=== PATIENT | male | born 1950 | race Caucasian/White ===

== ENCOUNTER 2018-08-17 06:26 | Observation (INO) ==
--- NOTE | 2018-08-10 17:13 | EKG Report ---
Test Performed on : 08/10/2018 5:02:58 PM Test Reason : PAT Blood Pressure : / mmHG Vent. Rate : 075 BPM Atrial Rate : 075 BPM P-R Int : 204 ms QRS Dur : 080 ms QT Int : 348 ms P-R-T Axes : 038 012 062 degrees QTc Int : 388 ms Normal sinus rhythm. Normal ECG No previous ECGs available Confirmed by Balbir SHERMAN, Bhargav ([id number]) on 08/11/2018 8:46:38 AM
[2018-08-10 17:24] LABS: URINE SOURCE CLEAN CATCH
[2018-08-10 17:34] LABS: BASO# 0.03 X1000 (0.0-0.2); BASO% 0.3 % (0.0-0.8); EOS# 0.19 X1000 (0.0-0.7); EOS% 1.7 % (0.0-10.0); HEMATOCRIT 39.5 % (42.0-52.0); HEMOGLOBIN 13.5 g/dL (14.0-18.0); IMM GRAN# 0.03 X1000 (0.0-0.04); IMM GRAN% 0.3 % (0.0-0.5); LYMPH# 3.19 X1000 (1.2-3.4); LYMPH% 28.4 % (20.5-51.1); MCH 29.7 PG (27-31); MCHC 34.2 g/dL (33-37); MCV 86.8 FL (81-99); MONO# 1.38 X1000 (0.11-0.59); MONO% 12.3 % (1.7-9.3); MPV 10.4 FL (7.4-10.4); NEUT# 6.42 X1000 (1.4-6.5); PLT 319 X1000 (130-400); RBC 4.55 XMIL (4.7-6.1); WBC 11.24 X1000 (4.8-10.8)
[2018-08-10 17:35] LABS: BILIRUBIN URINE NEGATIVE (NEGATIVE); BLOOD URINE NEGATIVE (NEGATIVE); COLOR YELLOW; GLUCOSE URINE NEGATIVE (NEGATIVE); KETONE URINE NEGATIVE (NEGATIVE); LEUKOCYTES URINE NEGATIVE (NEGATIVE); NITRITE URINE NEGATIVE (NEGATIVE); PROTEIN URINE NEGATIVE (NEGATIVE); TURBIDITY URINE CLEAR (CLEAR); UR EPITHELIAL CELLS <10 /HPF (<10); URINE BACTERIA NEGATIVE /HPF; URINE RBC <10 /HPF (<10); URINE WBC <10 /HPF (<10); UROBILINOGEN URINE NORMAL (NORMAL)
[2018-08-10 17:36] LABS: INR 0.89; PROTIME 12.8 Seconds (11.0-16.0)
[2018-08-10 17:37] LABS: PTT 26.5 Seconds (22.3-41.8)
[2018-08-10 17:50] LABS: AGAP 9; BUN 12 mg/dL (8-22); CALCIUM 9.4 mg/dL (8.8-10.2); CHLORIDE 97 mmol/L (98-107); COSMO 271; CREATININE 0.9 mg/dL (0.7-1.2); ESTIMATED GFR > 60; GLUCOSE 192 mg/dL (70-104); POTASSIUM 4.5 mmol/L (3.5-5.1); SODIUM 133 mmol/L (136-145); TCO2 27 mmol/L (25-35)
[2018-08-17] MEDS ORDERED: REGLAN ONE (06:58)
[2018-08-17] MEDS ORDERED: PEPCID ONE (06:58)
[2018-08-17] MEDS ORDERED: LYRICA ONE (06:59)
[2018-08-17] MEDS ORDERED: CELEBREX ONE (06:59)
[2018-08-17] MEDS ORDERED: KEFZOL 1 GM/D5W 1 GM/50 ML IVPB ONE ×2 (06:59→07:38)
[2018-08-17] MEDS ORDERED: LR 1,000 ML ONE (06:59)
[2018-08-17] MEDS ORDERED: COLACE ONE (07:19)
[2018-08-17] MEDS ORDERED: SENSORCAINE-MPF 0.5%/EPI 1:200,000 ONE (07:44)
[2018-08-17] MEDS ORDERED: VANCOMYCIN ONE (07:44)
[2018-08-17] MEDS ORDERED: TORADOL ONE (07:44)
[2018-08-17] MEDS ORDERED: SODIUM CHLORIDE 0.9% ONE (07:44)
[2018-08-17] MEDS ORDERED: DURAMORPH ONE (07:44)
[2018-08-17] MEDS ORDERED: CYKLOKAPRON 1,000 MG/NS 1,000 MG/100 ML IVPB ONE ×2 (07:44→08:40)
[2018-08-17] MEDS ORDERED: NEOSPORIN G.U. IRRIGANT ONE (07:45)
[2018-08-17] MEDS ORDERED: EXPAREL 1.3% ONE (07:45)
[2018-08-17] MEDS ORDERED: ROBINUL ONE (07:49)
[2018-08-17] MEDS ORDERED: DECADRON ONE (07:49)
[2018-08-17] MEDS ORDERED: XYLOCAINE-MPF 2% ONE (07:49)
[2018-08-17] MEDS ORDERED: FENTANYL ONE (07:50)
[2018-08-17] MEDS ORDERED: DIPRIVAN 1% ONE (07:50)
[2018-08-17] MEDS ORDERED: OFIRMEV 1000 MG/ISOTONIC SOLN 1,000 MG/100 ML BOTTLE ONE (09:04)
[2018-08-17] MEDS ORDERED: ZOFRAN ONE (09:04)
[2018-08-17] MEDS ORDERED: EPHEDRINE ONE (09:14)
[2018-08-17] MEDS ORDERED: DILAUDID ONE (10:07)
[2018-08-17] MEDS ORDERED: SODIUM CHLORIDE 0.9% 10 ML ONE (10:36)
[2018-08-17 11:50] LABS: URINE SOURCE CATH
[2018-08-17 11:55] LABS: BILIRUBIN URINE NEGATIVE (NEGATIVE); BLOOD URINE NEGATIVE (NEGATIVE); COLOR YELLOW; GLUCOSE URINE NEGATIVE (NEGATIVE); KETONE URINE NEGATIVE (NEGATIVE); LEUKOCYTES URINE NEGATIVE (NEGATIVE); NITRITE URINE NEGATIVE (NEGATIVE); PROTEIN URINE NEGATIVE (NEGATIVE); TURBIDITY URINE CLEAR (CLEAR); UR EPITHELIAL CELLS <10 /HPF (<10); URINE BACTERIA NEGATIVE /HPF; URINE RBC <10 /HPF (<10); URINE WBC <10 /HPF (<10); UROBILINOGEN URINE NORMAL (NORMAL)
[2018-08-17] MEDS ORDERED: NS 1,000 ML ONE (12:03)
--- NOTE | 2018-08-17 12:11 | Diag Imaging Result Doc PS360 ---
KNEE 1-2 VIEWS-RIGHT - 08/17/2018 INDICATION: RTKA TECHNIQUE: Two views COMPARISON: None FINDINGS: There has been placement of a right total knee arthroplasty with patellar resurfacing. Alignment is anatomic. No hardware fracture or loosening. IMPRESSION: No complication. Electronically signed by Ollie Beavers 08/17/2018 12:09 PM
[2018-08-17] MEDS ORDERED: MORPHINE IV PRN ×3 (13:30)
[2018-08-17] MEDS ORDERED: OXY IR PO PRN (13:30)
[2018-08-17] MEDS: NS 1,000 ML IV SCH (13:38)
[2018-08-17] MEDS: OXY IR PO PRN ×3 (15:02→20:56)
[2018-08-17] MEDS: ZOFRAN PO PRN (15:04)
[2018-08-17] MEDS: KEFZOL 2 GM/D5W 2 GM/50 ML IVPB IV SCH (17:09)
--- NOTE | 2018-08-17 18:57 | OPERATIVE NOTE ---
PROCEDURE DATE: 08/17/2018 PREOPERATIVE DIAGNOSIS: Degenerative osteoarthritis of the right knee. POSTOPERATIVE DIAGNOSIS: Degenerative osteoarthritis of the right knee. OPERATION: Right total knee arthroplasty with DePuy Attune size 5 posterior stabilized femur, size 5 tibial tray, a 5 mm rotating platform tibial insert and a 35 mm medialized anatomic patella. SURGEON: Tristian Miller MD IT OPERATIONS ANALYST: HELENA Arrieta SECOND MONOTYPIST: Quinton Hutchinson RN ANESTHESIA: General. INTRAVENOUS FLUIDS: Lactated Ringer 2000 mL ESTIMATED BLOOD LOSS: 25 mL TOURNIQUET TIME: 95 minutes at 300 mmHg. COMPLICATIONS: None. INDICATION: The patient is a 67-year-old male with chronic history of pain and discomfort in his right knee. He has had an arthroscopy many years ago. He has had pain that has progressed to affect his activities of daily living. X-rays revealed some degenerative changes as well as an MRI. Given the patient's underlying osteoarthritis, the recommendation to proceed with right total knee arthroplasty was offered. Risks and benefits of surgery were explained, including the risks of anesthesia, , bleeding, infection, failure to relieve pain, postoperative stiffness, nerve injury, blood clots and other imponderables. All questions were answered. The patient and family wish to proceed with surgery. PROCEDURE: The patient was taken to the operating room and underwent general anesthesia. After adequate anesthesia was obtained, the patient was placed supine on the operating table. The right lower extremity was subsequently prepped and draped in the usual sterile fashion. An Esmarch was used to exsanguinate the right lower extremity and the tourniquet was inflated to 300 mmHg. A standard anterior incision was made with a skin knife. Medial and lateral skin envelopes were developed. A standard medial parapatellar arthrotomy was performed. The patellar fat pad was excised. A retractor was then placed. Approximately 1 cm anterior to the PCL insertion, a starting reamer was passed. Intramedullary guide with a distal femoral cutting block was pinned in position. The distal cut was then performed in standard fashion. A sizing block was placed and measured size 5. Corresponding pins were placed. Anterior, posterior and chamfer cuts were then made. Attention was then turned to the proximal tibia, where further resection of the ACL and PCL was performed. Using the extramedullary guide, the proximal tibial cutting block was pinned in position. The proximal tibia had good alignment, confirmed with the alignment kan. The proximal tibia was then resected in standard fashion. The medial and lateral menisci were excised. Curved osteotome was used to remove posterior osteophytes off the distal femur. The spacer block was placed and had good soft tissue balance with flexion and extension. Attention was then turned to the proximal tibia. Size 5 tibial tray appeared be correct size corresponding. This was pinned in position. This was followed by a central reamer and a fin punch. A box cutting guide was pinned on the distal femur. A box cut was performed. A trial femoral component was then placed in good positioning. Two lug holes were drilled. Trial tibial insert was placed, with good soft tissue balancing. The patella was everted and resected in standard fashion. A size 35 mm appeared to be correct size. The holes were drilled. The trial component was then placed. The knee was carried through range of motion and had good patellofemoral tracking. The trial components were then removed. Copious irrigation was then performed with antibiotic pulsatile lavage while vancomycin was mixed with cement on the back table. Sequential cementing was then performed, first with the tibial tray and excess cement was removed with a Steedman. This was followed by the femoral component. Excess cement was removed with a Steedman, followed by the trial tibial insert in full extension. Axial loading was maintained while the cement cured. The patella was cemented in standard fashion and clamp was placed. While the cement was curing, Exparel was placed in the deep soft tissue as well as the subcutaneous tissue. After the cement had cured, peripheral cement was removed with a small osteotome. A size 5 mm rotating platform tibial insert appeared to be the correct size. The trial insert was removed. Exparel was placed in the deep soft tissue. The wound was copiously irrigated once again. A 5 mm rotating platform tibial insert was then placed. The knee was then carried through range of motion. It had good range of motion, good stability and good patellofemoral tracking. A 1/8-inch Hemovac drain was placed. It was not sewn in. Copious irrigation was then performed once again with antibiotic pulsatile lavage. Number 1 Vicryl was used to repair the arthrotomy, followed by 2-0 Vicryl to repair the subcutaneous tissue and skin keke. Adaptic, sterile 4 x 4s, Webril, cryo unit and Tuan wrap were applied to the right lower extremity. The patient tolerated the procedure well. No complications. Transferred to the recovery room in stable condition. cc: Tristian Miller MD
[2018-08-17] MEDS: COLACE PO SCH (20:52)
[2018-08-17] MEDS: PERIDEX MT SCH (20:52)
[2018-08-18] MEDS: OXY IR PO PRN ×8 (00:11→23:12)
[2018-08-18] MEDS: KEFZOL 2 GM/D5W 2 GM/50 ML IVPB IV SCH (01:30)
[2018-08-18] MEDS: NS 1,000 ML IV SCH ×2 (01:31→07:57)
[2018-08-18 06:16] LABS: HEMATOCRIT 35.2 % (42.0-52.0); HEMOGLOBIN 11.7 g/dL (14.0-18.0)
[2018-08-18 06:42] LABS: AGAP 7; BUN 12 mg/dL (8-22); CALCIUM 8.8 mg/dL (8.8-10.2); CHLORIDE 101 mmol/L (98-107); COSMO 273; CREATININE 1.1 mg/dL (0.7-1.2); ESTIMATED GFR > 60; GLUCOSE 153 mg/dL (70-104); POTASSIUM 4.5 mmol/L (3.5-5.1); SODIUM 135 mmol/L (136-145); TCO2 27 mmol/L (25-35)
[2018-08-18] MEDS: XARELTO PO SCH (07:42)
[2018-08-18] MEDS: TOPROL XL PO SCH (08:42)
[2018-08-18] MEDS: PRINIVIL PO SCH (08:42)
[2018-08-18] MEDS: COLACE PO SCH ×2 (08:42→19:58)
[2018-08-18] MEDS: ZYRTEC PO SCH (08:42)
[2018-08-18] MEDS: GLUCOPHAGE PO SCH ×2 (08:42→16:51)
[2018-08-18] MEDS: PERIDEX MT SCH ×2 (08:42→19:58)
[2018-08-18] MEDS: FLONASE NAS SCH (08:42)
--- NOTE | 2018-08-18 09:33 | Diag Imaging Result Doc PS360 ---
EXAM: CHEST-1 VIEW 08/18/2018 HISTORY: REHAB TECHNIQUE: AP portable at 0924 COMMENT: There is no evidence of acute cardiac or pulmonary disease. There are no previous studies. IMPRESSION: No acute disease. Electronically signed by Hi Osborne 08/18/2018 9:31 AM
--- NOTE | 2018-08-18 09:38 | ORTHOPAEDICS PROGRESS NOTE ---
DATE: 08/18/2018 SUBJECTIVE: The patient is a pleasant, 67-year-old male, who is 1 day status post right total knee arthroplasty. He is currently resting comfortably. OBJECTIVE: The patient's right lower extremity wound looks good. There are no signs or symptoms of infection. His calf is soft. He has active dorsiflexion and plantar flexion. He is neurovascularly intact distally. LABORATORY DATA: Pending. IMPRESSION: Postoperative day #1 status post right total knee arthroplasty. PLAN: At this point, will discontinue his Pearce and Hep-Lock his IV. Will begin mobilization with Physical Therapy. Barrel Dedenting Machine Operator has been consulted for discharge planning for evaluation for inpatient rehabilitation. cc: Tristian Miller MD
[2018-08-18] MEDS: ZOFRAN PO PRN ×2 (12:43→20:00)
[2018-08-19] MEDS: PERIDEX MT SCH ×2 (01:31→08:38)
[2018-08-19] MEDS: NS 1,000 ML IV SCH ×2 (01:31→05:22)
[2018-08-19] MEDS: COLACE PO SCH ×2 (01:31→08:37)
[2018-08-19] MEDS: ZOFRAN PO PRN ×3 (02:23→14:40)
[2018-08-19] MEDS: OXY IR PO PRN ×2 (02:23→05:22)
[2018-08-19] MEDS: XARELTO PO SCH (05:22)
[2018-08-19] MEDS ORDERED: OXY IR PO PRN ×2 (06:14→06:15)
[2018-08-19 06:29] LABS: HEMATOCRIT 34.8 % (42.0-52.0); HEMOGLOBIN 11.3 g/dL (14.0-18.0)
[2018-08-19] MEDS: ZYRTEC PO SCH (08:35)
[2018-08-19] MEDS: TOPROL XL PO SCH (08:36)
[2018-08-19] MEDS: GLUCOPHAGE PO SCH (08:36)
[2018-08-19] MEDS: FLONASE NAS SCH (08:38)
[2018-08-19] MEDS: PRINIVIL PO SCH (08:38)
--- NOTE | 2018-08-19 09:34 | ORTHOPAEDICS PROGRESS NOTE ---
DATE: 08/19/2018 SUBJECTIVE: The patient is a pleasant 67-year-old male who is 2 days status post right total knee arthroplasty. He is currently resting comfortably. His p.o. medication is working well to relieving his discomfort. PHYSICAL EXAMINATION: The patient's right lower extremity, his wound looks good. There is no signs or symptoms of infection. His calf is soft. Active dorsiflexion and plantar flexion. His hemoglobin and hematocrit from yesterday was 11.7 and 35.2. IMPRESSION: Postoperative day #2 status post right total knee arthroplasty. PLAN: At this point, it is felt that the patient would benefit from inpatient rehabilitation. Awaiting rehab bed placement. He will continue to progress with physical therapy. cc: Tristian Miller MD
[2018-08-19 12:13] VITALS: BP 120/70
--- NOTE | 2018-08-19 12:48 | DISCHARGE SUMMARY ---
ADMISSION DATE: 08/17/2018 DISCHARGE DATE: ADMITTING DIAGNOSIS: Degenerative osteoarthritis of the right knee. DISCHARGE DIAGNOSIS: Degenerative osteoarthritis of the right knee, status post right total knee arthroplasty. BRIEF HISTORY: The patient is a pleasant 67-year-old male with chronic history of pain and discomfort of his right knee. Radiographic studies revealed underlying osteoarthritis. Recommendation to proceed with right total knee arthroplasty was offered. Risks and benefits of the surgery were explained and all questions were answered. HOSPITAL COURSE AND TREATMENT: The patient was admitted to the hospital and underwent right total knee arthroplasty. The patient tolerated the procedure well. He had an uneventful postoperative course. It was felt the patient would benefit from inpatient rehabilitation. The patient and family agreeable to this. By postoperative day #2, his hemoglobin and hematocrit stabilized at 11.3 and 34.8. Prior to discharge, the patient was afebrile, tolerating regular diet, was mobilizing with physical therapy with full weightbearing right lower extremity. His pain was well controlled on p.o. medication. DISCHARGE MEDICATIONS: 1. Oxy IR 5 to 10 mg p.o. q.4 hours p.r.n. pain. 2. Xarelto 10 mg x10 days. 3. For remaining medications, please see medication list. DISCHARGE INSTRUCTIONS: 1. The patient will be discharged to inpatient rehabilitation. 2. Consult physical therapy with full weightbearing right lower extremity and range of motion and gait training per total knee protocol. 3. Discontinue keke in 11 days. 4. Follow up in the office in 3 weeks. cc: Tristian Miller MD
[2018-08-22] MEDS ORDERED: NON-FORMULARY MED (Dulaglutide [Trulicity] 0.75 MG) SQ SCH (06:00)
== END 2018-08-19 14:43 ==
LOC: 4N 06:26 → OR 06:26
PROVIDERS: ADMIT Orthopaedic Surgery Adult Reconstructive Orthopaedic Surgery; ATTEND Orthopaedic Surgery Adult Reconstructive Orthopaedic Surgery
CPT/HCPCS: 71010; 71045; 73560; 80048; 81001; 82948; 85014; 85018; 85025; 85610; 85730; 86850; 86900; 86901; 88305; 88311; 93005; 93010; 94761; 94799; 97116; 97162; 97530; A9270; C9290; J0131; J0690; J1100; J1170; J1885; J2270; J2274; J2275; J2405; J3010; J3370; J7030; J7120; Q9974; XXXXX